=== PATIENT | female | born 1970 | race Caucasian/White ===

== ENCOUNTER 2020-04-19 23:38 | Emergency (ER) | payer OTHER ==
[2020-04-20] MEDS ORDERED: NORMAL SALINE 1000 ML 1,000 ML IV ONE
--- NOTE | 2020-04-20 00:24 | RADIOLOGY REPORT (SQ) ---
EXAM DESCRIPTION: [facility]: XR CHEST 1 VIEW CLINICAL HISTORY: 50 years Female; chest pain after cpr; COMPARISON: None. FINDINGS: Lungs: Lungs are clear, with no focal infiltrate, pneumothorax, or pleural effusion. Mediastinum: Mediastinum is within normal limits for this positioning. Bones: No displaced rib fractures are identified. No subpleural thickening. IMPRESSION: 1. No acute pulmonary findings.
[2020-04-20 00:26] LABS: APPEARANCE,URINE CLEAR; BILIRUBIN,URINE NEGATIVE (NEGATIVE); COLOR,URINE YELLOW; GLUCOSE, URINE 50 mg/dL (NEGATIVE); KETONES,URINE NEGATIVE (NEGATIVE); PROTEIN,URINE NEGATIVE (NEGATIVE); URINE SPECIFIC GRAVITY 1.015; UROBILINOGEN,URINE NEGATIVE mg/dL (<2.0)
[2020-04-20 00:38] LABS: URINE AMPHETAMINES SCREEN NEGATIVE; URINE BARBITURATES SCREEN NEGATIVE; URINE BENZODIAZEPINES SCREEN NEGATIVE; URINE COCAINE SCREEN NEGATIVE; URINE MARIJUANA (THC) SCREEN NEGATIVE; URINE METHADONE SCREEN NEGATIVE; URINE PHENCYCLIDINE SCREEN NEGATIVE
--- NOTE | 2020-04-20 01:21 | ER Document Report ---
Entered by GUILLE AWLLACE SCRIBE 04/20/20 0005 Acting as scribe for:TAYLER ROSALES IV, MD ED Substance Abuse / Acc. OD - General Stated Complaint: POSSIBLE OVERDOSE Time Seen by Provider: 04/19/20 23:41 Mode of Arrival: Medic Information source: Emergency Med Personnel Notes: This 50 year old female patient brought in by EMS from a hotel presents to the ED today with complaints of possible overdose that occurred just prior to arrival. Per EMS, the patient was found unresponsive and purple by sister who attempted CPR. Upon their arrival, patient was initially GCS 3 with agonal respirations, RR 2-3, and pinpoint pupils. EMS administered a total of x4 mg Narcan which increased respirations and placed the patient on 2L O2 via NC. ED nurse reports that the patient takes 10 mg Oxycodone for chronic back pain. ED nurse also states that the patient complained of sternal chest pain upon ED arrival. Denies shortness of breath. - Related Data Allergies/Adverse Reactions: No Known Allergies Allergy (Verified 04/20/20 00:29) Past Medical History - General Information source: Emergency Med Personnel - Social History Smoking Status: Unknown if Ever Smoked Cigarette use (# per day): No Chew tobacco use (# tins/day): No Smoking Education Provided: No Lives with: Family Family History: Reviewed & Not Pertinent Patient has suicidal ideation: No Patient has homicidal ideation: No Review of Systems - Review of Systems Constitutional: No symptoms reported EENT: No symptoms reported Cardiovascular: See HPI, Chest pain Respiratory: See HPI. denies: Short of breath Gastrointestinal: No symptoms reported Genitourinary: No symptoms reported Female Genitourinary: No symptoms reported Musculoskeletal: No symptoms reported Skin: No symptoms reported Hematologic/Lymphatic: No symptoms reported Neurological/Psychological: See HPI, Other - Possible overdose -: Yes All other systems reviewed and negative Physical Exam - Vital signs Vitals: Temp 98.2 F 04/19/20 23:39 - General General appearance: Alert In distress: None - HEENT Head: Normocephalic, Atraumatic Eyes: Normal Pupils: PERRL - Respiratory Respiratory status: No respiratory distress Chest status: Nontender Breath sounds: Normal Chest palpation: Normal - Cardiovascular Rhythm: Regular Heart sounds: Normal auscultation Murmur: No Friction rub: No Gallop: None auscultated - Abdominal Inspection: Normal Distension: No distension Bowel sounds: Normal Tenderness: Nontender - Abdomen soft Organomegaly: No organomegaly - Back Back: Normal, Nontender - Extremities General upper extremity: Normal inspection General lower extremity: Normal inspection - Neurological Neuro grossly intact: Yes Orientation: AAOx4 [place] Coma Scale Eye Opening: Spontaneous [place] Coma Scale Verbal: Oriented [place] Coma Scale Motor: Obeys Commands [place] Coma Scale Total: 15 - Psychological Associated symptoms: Normal affect, Normal mood - Skin Skin Temperature: Warm Skin Moisture: Dry Skin Color: Normal Course - Re-evaluation Re-evalutation: 04/20/20 06:12 Results of ED MSE discussed with patient. All questions were answered prior to discharge. Emergency signs and symptoms, reasons to return to the emergency department discussed with patient. - Vital Signs Vital signs: Temp Pulse Resp BP Pulse Ox 98.2 F 23 H 136/75 H 98 04/19/20 23:40 04/20/20 05:01 04/20/20 05:00 04/20/20 05:01 - Laboratory Result Diagrams: 04/19/20 00:00 04/20/20 00:00 Laboratory results interpreted by me: 04/19/20 04/20/20 04/20/20 00:00 00:00 00:00 WBC 11.0 H RDW 14.8 H Absolute Neuts (auto) 8.8 H Seg Neutrophils % 80.1 H Glucose 147 H Creatine Kinase 398 H Urine Glucose (UA) 50 H 04/20/20 04/20/20 02:53 05:03 WBC RDW Absolute Neuts (auto) Seg Neutrophils % Glucose Creatine Kinase 295 H 261 H Urine Glucose (UA) - Diagnostic Test Radiology reviewed: Reports reviewed - EKG Interpretation by Me Additional EKG results interpreted by me: 04/20/20 05:17 Initial EKG obtained on 04/19/2020 at 2344 hrs. was interpreted by this MD. Findings: Normal sinus rhythm, rate 98, normal axis, P waves proceed QRS complexes, QRS complexes appear narrow, there are no obvious patterns of ST segment elevation or depression present to suggest acute myocardial ischemia or infarction. Impression: Normal sinus rhythm with nonspecific ST segments. Repeat EKG obtained on 04/20/2020 at 0513 hrs. was interpreted by this MD. Findings: Sinus tachycardia, rate 101, normal axis, P waves preceding QRS complexes, QRS complexes appear narrow, there are no obvious patterns of ST segment elevation or depression present to suggest acute myocardial ischemia or infarction. Impression: Sinus tachycardia with nonspecific ST segments. Discharge - Discharge Clinical Impression: Sedated due to medication Condition: Good Disposition: HOME, SELF-CARE Additional Instructions: Return to the Emergency Department without delay if any worse. Take your medications only as prescribed. Be certain to follow-up with your primary care provider on 04/21/2020. HOME CARE INSTRUCTIONS & INFORMATION: Thank you for choosing us for your medical needs. We hope you're satisfied with the care you received. After you leave, you must properly care for your problem and, at the same time, observe its progress. Any condition can change. Some illnesses can change rapidly over hours or days. If your condition worsens, return to the Emergency Department or see your physician promptly. ABOUT YOUR X-RAYS AND EKG'S: If you had an EKG or X-rays taken, they have been read by the Emergency Physician. The X-rays and EKG's will also be read by a Radiologist or Software Quality Specialist within 24 hours. If discrepancies are noted, you will be notified by telephone. Please be certain the ED has a correct telephone number & address where you can be reached. Also, realize that some fractures or abnormalities do not show up on initial X-rays. If your symptoms continue, see your physician. ABOUT YOUR LABORATORY TEST: If you had laboratory tests, the results have been reviewed by the Emergency Physician. Some test results (for example cultures) may not be available for several days. You will be contacted if any test result shows you need additional treatment. Please be certain the ED has a correct telephone number and address where you can be reached. ABOUT YOUR MEDICATIONS: You will receive instructions on how to take your medicine on the prescription label you receive. Additional information may be provided by the Pharmacy. If you have questions afterwards, call the ED for clarification or further instructions. Some prescribed medications may cause drowsiness. Do not perform tasks such as driving a car or operating machinery without consulting your Pharmacist. If you feel you need a refill of pain medication, your condition will need re-evaluation. Please do not call for a refill of any medication. ABOUT YOUR SIGNATURE: Signature of this document acknowledges to followin. Understanding that you received emergency treatment and that you may be released before al medical problems are known or treated. Please be certain the ED has a correct phone number & address where you can be reached. 2. Acknowledgement that you will arrange for follow-up care as recommended. 3. Authorization for the Emergency Physician to provide information to your follow-up Physician in order to maximize your care. AT ANY TIME, IF YOUR SYMPTOMS CHANGE SIGNIFICANTLY OR WORSEN OR YOU DEVELOP NEW SYMPTOMS, RETURN TO THE EMERGENCY DEPARTMENT IMMEDIATELY FOR RE-EVALUATION. OUR GOAL IS TO PROVIDE EXCELLENT MEDICAL CARE! WE HOPE THAT WE HAVE MET YOUR EXPECTATIONS DURING YOUR EMERGENCY DEPARTMENT VISIT AND THAT YOU FEEL YOU HAVE RECEIVED EXCELLENT CARE! I personally performed the services described in the documentation, reviewed and edited the documentation which was dictated to the scribe in my presence, and it accurately records my words and actions.
[2020-04-20 05:58] LABS: CALCIUM 8.6 mg/dL (8.4-10.2); CREATINE KINASE MB 4.03 ng/mL (<4.55); GLUCOSE 147 mg/dL (75-110); TROPONIN I 0.014 ng/mL
[2020-04-20 05:59] LABS: ALBUMIN 4.1 g/dL (3.5-5.0); ALKALINE PHOSPHATASE 114 U/L (38-126); ANION GAP 8 (5-19); ASPARTATE AMINO TRANSFERASE 36 U/L (14-36); BILIRUBIN,TOTAL 0.2 mg/dL (0.2-1.3); BLOOD UREA NITROGEN 10 mg/dL (7-20); CARBON DIOXIDE 26 mmol/L (22-30); CHLORIDE 103 mmol/L (98-107); POTASSIUM 3.9 mmol/L (3.6-5.0)
[2020-04-20 06:01] LABS: CREATINE KINASE 398 U/L (30-135); TOTAL PROTEIN 7.1 g/dL (6.3-8.2)
[2020-04-20 06:18] LABS: HEMATOCRIT 39.7 % (36.0-47.0); HEMOGLOBIN 13.5 g/dL (12.0-15.5); MEAN CORPUSCULAR HEMOGLOBIN 32.5 pg (27.0-33.4); MEAN CORPUSCULAR VOLUME 96 fl (80-97); RED BLOOD COUNT 4.15 10^6/uL (3.72-5.28)
[2020-04-20 06:19] LABS: LYMPHOCYTES % (AUTO) 13.4 % (13-45); MONOCYTES % (AUTO) 5.4 % (3-13); PLATELET COUNT 185 10^3/uL (150-450); RED CELL DISTRIBUTION WIDTH 14.8 % (11.5-14.0); SEGMENTED NEUTROPHILS % (AUTO) 80.1 % (42-78)
[2020-04-20 06:20] LABS: ABSOLUTE EOSINOPHILS # (AUTO) 0.1 10^3/uL (0.0-0.6); ABSOLUTE LYMPHOCYTES (AUTO) 1.5 10^3/uL (0.5-4.7); ABSOLUTE MONOCYTES (AUTO) 0.6 10^3/uL (0.1-1.4); ABSOLUTE NEUT (AUTO) 8.8 10^3/uL (1.7-8.2); BASOPHILS % (AUTO) 0.3 % (0-2); EOSINOPHILS % (AUTO) 0.8 % (0-6); TOTAL CELLS COUNTED % (AUTO) 100 %
[2020-04-20 06:29] VITALS: BP 113/71
--- NOTE | 2020-04-20 22:45 | EKG REPORT ---
SEVERITY:- BORDERLINE ECG - SINUS RHYTHM BORDERLINE T ABNORMALITIES, INFERIOR LEADS : Confirmed by: Annel Quintana MD 20-Apr-2020 22:44:06
--- NOTE | 2020-04-20 22:45 | EKG REPORT ---
SEVERITY:- BORDERLINE ECG - SINUS TACHYCARDIA BORDERLINE T ABNORMALITIES, ANTERIOR LEADS : Confirmed by: Annel Quintana MD 20-Apr-2020 22:44:01
== END 2020-04-20 06:29 | disposition home or self-care (01) ==
LOC: ER 23:38
DX: R68.89 Other general symptoms and signs (principal); F19.988 Other psychoactive substance use, unspecified with other psychoactive substance-induced disorder; M54.9 Dorsalgia, unspecified; Z79.891 Long term (current) use of opiate analgesic; R07.9 Chest pain, unspecified
CPT/HCPCS: 93005 ×2; 99285; 96360; 36415; 82553; 80307 ×2; 82550; 85025; 80053; 81001; 84484; 71045; 93010 ×2; J7030